=== PATIENT | female | born 1990 | race African-American/Black ===

== ENCOUNTER 2024-08-01 21:58 | Emergency (ER) | payer MEDICAID ==
[~2024-08-01] VITALS: Ht 167.6 cm; Wt 136.1 kg
[2024-08-01 22:09] VITALS: O2SAT 99
[2024-08-01 22:32] VITALS: BP 183/100; PULSE 114; RESP 16; TEMP 36.6; O2SAT 98
[2024-08-01] MEDS ORDERED: CEPH500T MT (23:36)
[2024-08-01] MEDS ORDERED: CLOT15CR27 TP (23:36)
== END 2024-08-01 23:55 | disposition home or self-care (01) ==
LOC: ER 21:58
DX: L73.9 Follicular disorder, unspecified (principal); Z79.899 Other long term (current) drug therapy
CPT/HCPCS: 99283

== ENCOUNTER 2025-01-03 08:25 | Emergency (ER) | payer MEDICAID ==
[~2025-01-03] VITALS: Ht 167.6 cm; Wt 109.0 kg
[~2025-01-03 08:25] MED LIST: CEPH500T MT; CLOT15CR27 TP
[2025-01-03 08:32] VITALS: O2SAT 99
[2025-01-03 09:03] LABS: BASOPHILS % 1.2 % (0.0-2.0); EOSINOPHILS % 1.1 % (0.0-5.0); HEMATOCRIT. 38.7 % (36.0-48.0); HEMOGLOBIN. 13.2 g/dL (12.0-16.0); LYMPHOCYTES % 26.6 % (20.0-50.0); MONOCYTES % 6.4 % (2.0-8.0); NEUTROPHILS % 64.7 % (40.0-76.0); RED BLOOD CELL COUNT 4.52 mill/uL (4.2-5.4); RED CELL DISTRIBUTION WIDTH 13.5 % (11.6-14.6)
[2025-01-03 09:11] LABS: HCG SCREEN NEGATIVE
[2025-01-03] MEDS: FAMOTIDINE 20MG TABLET PO ONE (09:18)
[2025-01-03] MEDS: MAGNESIUM/ALUMINUM HYDROXIDE/SIMETHICONE 30ML UDC PO ONE (09:18)
[2025-01-03 09:21] LABS: CREATININE 0.7 mg/dL (0.6-1.0); UREA NITROGEN BLOOD < 5 mg/dL (9-23)
[2025-01-03 09:23] LABS: ASPARTATE AMINOTRANSFERASE 14 IU/L (<34); BILIRUBIN DIRECT 0.2 mg/dL (<=3.0)
[2025-01-03 09:24] LABS: BILIRUBIN TOTAL 0.9 mg/dL (0.1-1.0); PROTEIN TOTAL 7.4 g/dL (6.0-8.3)
[2025-01-03 09:38] LABS: PLATELET 571 x1000/uL (130-400)
[2025-01-03 10:52] LABS: CLARITY URINE CLOUDY (CLEAR); COLOR URINE DARK YELLOW (YELLOW); GLUCOSE URINE TRACE (NEGATIVE); KETONES URINE 2+ (NEGATIVE); LEUKOCYTE ESTERASE URINE 1+ (NEGATIVE); NITRITE URINE NEGATIVE (NEGATIVE); OCCULT BLOOD URINE NEGATIVE (NEGATIVE); PH URINE 6.0 (4.5-8.0); PROTEIN URINE 1+ (NEGATIVE); SPECIFIC GRAVITY URINE 1.025 (1.005-1.030); UROBILINOGEN URINE 1.0 E.U./dL (0.2-1.0)
[2025-01-03] MEDS ORDERED: METF-1149 MT (11:20)
[2025-01-03] MEDS ORDERED: ONDA-239 PO (11:20)
[2025-01-03 11:35] LABS: BACTERIA URINE 2+; SQUAMOUS EPITHELIAL CELL URINE 3+ /lpf (RARE/1+); TRICHOMONAS URINE 1+; YEAST URINE NONE SEEN
[2025-01-03 11:39] VITALS: BP 149/110; PULSE 93; RESP 18; TEMP 36.7; O2SAT 99
== END 2025-01-03 11:41 | disposition home or self-care (01) ==
LOC: ER 08:25
DX: K52.9 Noninfective gastroenteritis and colitis, unspecified (principal); R73.9 Hyperglycemia, unspecified; Z79.84 Long term (current) use of oral hypoglycemic drugs
CPT/HCPCS: 36415; 80048; 80076; 81003; 81025; 84703; 85025; 99283

== ENCOUNTER 2025-03-14 18:05 | Emergency (ER) | payer MEDICAID ==
[~2025-03-14] VITALS: Ht 170.2 cm; Wt 137.0 kg
[~2025-03-14 18:05] MED LIST changes: +METF-1149 MT; +ONDA-239 PO
[2025-03-14 18:06] VITALS: O2SAT 98
[2025-03-14 18:12] VITALS: BP 187/117; PULSE 100; RESP 16; TEMP 36.6; O2SAT 100
[2025-03-15] MEDS ORDERED: METR-167 MT (18:47)
[2025-03-15] MEDS ORDERED: CEPH500T MT (18:47)
== END 2025-03-14 20:52 | disposition left against medical advice (07) ==
LOC: ER 18:05
DX: R10.9 Unspecified abdominal pain (principal); Z53.21 Procedure and treatment not carried out due to patient leaving prior to being seen by health care provider
CPT/HCPCS: 99281

== ENCOUNTER 2025-03-15 15:19 | Emergency (ER) | payer MEDICAID ==
[~2025-03-15] VITALS: Ht 170.2 cm; Wt 136.0 kg
[2025-03-15 15:26] VITALS: O2SAT 100
[2025-03-15] MEDS: ONDANSETRON 4MG ODT PO ONE (15:52)
[2025-03-15] MEDS: MAGNESIUM/ALUMINUM HYDROXIDE/SIMETHICONE 30ML UDC PO ONE (16:11)
[2025-03-15] MEDS: FAMOTIDINE 20MG TABLET PO ONE (16:11)
[2025-03-15 16:32] LABS: BASOPHILS % 0.4 % (0.0-2.0); EOSINOPHILS % 0.1 % (0.0-5.0); HEMATOCRIT. 39.2 % (36.0-48.0); HEMOGLOBIN. 13.1 g/dL (12.0-16.0); LYMPHOCYTES % 13.5 % (20.0-50.0); MEAN PLATELET VOLUME 7.1 fl (7.4-10.4); MONOCYTES % 6.4 % (2.0-8.0); NEUTROPHILS % 79.6 % (40.0-76.0); PLATELET 469 x1000/uL (130-400); RED BLOOD CELL COUNT 4.57 mill/uL (4.2-5.4); RED CELL DISTRIBUTION WIDTH 13.9 % (11.6-14.6)
[2025-03-15 16:46] LABS: CREATININE 0.9 mg/dL (0.6-1.0); ETHANOL BLOOD < 10 mg/dL (<10); UREA NITROGEN BLOOD 5 mg/dL (9-23)
[2025-03-15 16:47] LABS: PROTEIN TOTAL 7.8 g/dL (6.0-8.3)
[2025-03-15 16:48] LABS: ASPARTATE AMINOTRANSFERASE 11 IU/L (<34); BILIRUBIN DIRECT 0.4 mg/dL (<=3.0); BILIRUBIN TOTAL 1.4 mg/dL (0.1-1.0)
[2025-03-15] MEDS: SODIUM CHLORIDE 0.9% 1,000 ML IV ONE (16:50)
[2025-03-15] MEDS: HALOPERIDOL LACTATE 5MG/ML VIAL IM ONE (16:51)
[2025-03-15] MEDS: KETOROLAC 15MG/ML VIAL IM ONE (17:05)
[2025-03-15 17:09] LABS: HCG SCREEN NEGATIVE
[2025-03-15 17:41] LABS: CLARITY URINE TURBID (CLEAR); COLOR URINE YELLOW (YELLOW); GLUCOSE URINE 1+ (NEGATIVE); KETONES URINE 3+ (NEGATIVE); LEUKOCYTE ESTERASE URINE 2+ (NEGATIVE); NITRITE URINE NEGATIVE (NEGATIVE); OCCULT BLOOD URINE NEGATIVE (NEGATIVE); PH URINE 5.5 (4.5-8.0); PROTEIN URINE 2+ (NEGATIVE); SPECIFIC GRAVITY URINE 1.031 (1.005-1.030); UROBILINOGEN URINE 1.0 E.U./dL (0.2-1.0)
[2025-03-15 17:49] LABS: *AMPHETAMINES SCREEN URINE NEGATIVE (NEGATIVE)
[2025-03-15 17:50] LABS: *BARBITURATES SCREEN URINE NEGATIVE (NEGATIVE); *BENZODIAZEPINES SCREEN URINE NEGATIVE (NEGATIVE); *COCAINE SCREEN URINE PRESUMPTIVE POSITIVE (NEGATIVE); CANNABINOID URINE SCREEN PRESUMPTIVE POSITIVE (NEGATIVE); ECSTASY MDMA SCREEN URINE NEGATIVE (NEGATIVE); METHADONE URINE SCREEN NEGATIVE (NEGATIVE); OPIATES URINE SCREEN NEGATIVE (NEGATIVE); PHENCYCLIDINE URINE SCREEN NEGATIVE (NEGATIVE)
[2025-03-15 18:00] LABS: BACTERIA URINE 3+; RBC URINE 0-2 /hpf (0-2); SQUAMOUS EPITHELIAL CELL URINE 2+ /lpf (RARE/1+)
[2025-03-15 18:01] LABS: TRICHOMONAS URINE 1+
[2025-03-15] MEDS ORDERED: METR-167 MT (18:47)
[2025-03-15] MEDS ORDERED: CEPH500T MT (18:47)
[2025-03-15 19:00] VITALS: BP 175/105; PULSE 95; RESP 21; TEMP 37; O2SAT 99
== END 2025-03-15 19:01 | disposition home or self-care (01) ==
LOC: ER 15:19
DX: N39.0 Urinary tract infection, site not specified (principal); R11.16 Cannabis hyperemesis syndrome; F12.90 Cannabis use, unspecified, uncomplicated; A59.9 Trichomoniasis, unspecified; F14.90 Cocaine use, unspecified, uncomplicated; Z79.899 Other long term (current) drug therapy
CPT/HCPCS: 80076; 80305; 80048; 81003; 81025; 80320; 84703; 83690; 85025; 36415; 74176; 96360; 96372; 99285; Q0162; J1630; J1885; J7030; Z7610 ×4; G0480